=== PATIENT | female | born 1965 | race Caucasian/White ===

== ENCOUNTER 2019-05-20 08:25 | Observation (INO) | payer BC, OTHER ==
[~2019-05-20] VITALS: Ht 167.6 cm; Wt 127.9 kg
[2019-05-20] MEDS ORDERED: ASPIRIN 81 MG CHEW TAB PO ONE (08:45)
[2019-05-20 09:11] LABS: BASOPHILS # (AUTO) 0.1 (0.0-0.1); BASOPHILS % 0.5 % (0.0-1.0); EOSINOPHILS # (AUTO) 0.1 (0.0-0.4); EOSINOPHILS % 1.3 % (0.0-6.0); HEMATOCRIT 39.1 % (34.2-44.1); HEMOGLOBIN 13.2 g/dL (12.0-16.0); LYMPHOCYTES # (AUTO) 3.2 (1.0-3.2); LYMPHOCYTES % 33.7 % (18.0-39.1); MEAN CORPUSCULAR HEMOGLOBIN 30.9 pg (28-32); MEAN CORPUSCULAR HGB CONC 33.8 g/dL (31-35); MEAN CORPUSCULAR VOLUME 91.6 fL (81-99); MONOCYTES # (AUTO) 0.7 (0.2-0.8); MONOCYTES % 7.4 % (4.4-11.3); NEUTROPHILS # (AUTO) 5.3 (2.1-6.9); NEUTROPHILS % 56.6 % (38.7-80.0); PLATELET COUNT 210 x10e3/uL (140-360); RED BLOOD COUNT 4.27 x10e6/uL (3.6-5.1); RED CELL DISTRIBUTION WIDTH 12.3 % (11.7-14.4)
[2019-05-20] MEDS ORDERED: BISACODYL5 MG (09:20)
[2019-05-20] MEDS ORDERED: TYLENOL # 31 EA (09:20)
[2019-05-20] MEDS ORDERED: CITALOPRAM HBR20 MG PO (09:20)
[2019-05-20] MEDS ORDERED: GABAPENTIN100 MG PO (09:20)
[2019-05-20] MEDS ORDERED: MELOXICAM15 MG (09:20)
[2019-05-20] MEDS ORDERED: OLMESARTAN-HCT1 EAC2 PO (09:20)
[2019-05-20] MEDS ORDERED: CYCLOBENZAPRINE10 MG PO (09:20)
--- NOTE | 2019-05-20 09:29 | Diagnostic Imaging Report ---
EXAMINATION: CHEST 2 VIEWS INDICATION: Chest pain COMPARISON: None FINDINGS: LINES/TUBES:None LUNGS:The lungs are well-inflated. No focal consolidation or pulmonary edema. Mild left basilar subsegmental atelectasis. PLEURA:No pleural effusion or pneumothorax. MEDIASTINUM:The cardiomediastinal silhouette appears normal in size and shape. BONES/SOFT TISSUES:No acute osseous injury. ABDOMEN:No free air under the diaphragm. IMPRESSION: No focal pneumonia or pulmonary edema. Mild left basilar subsegmental atelectasis. Signed by: Mary Bernardo MD on 05/20/2019 9:26 AM
[2019-05-20 09:39] LABS: ALBUMIN 4.1 g/dL (3.5-5.0); ALBUMIN/GLOBULIN RATIO 1.1 (0.8-2.0); ANION GAP 12.5 mmol/L (8-16); CALCIUM 9.7 mg/dL (8.4-10.2); CREATININE, SERUM 1.03 mg/dL (0.57-1.11); POTASSIUM 4.5 mmol/L (3.5-5.1)
[2019-05-20 09:46] LABS: CREATINE KINASE MB 1.4 ng/mL (0-5.0)
[2019-05-20] MEDS ORDERED: MORPHINE SULFATE INJ 4 MG/ML INJ 1ML IV PRN (10:30)
[2019-05-20] MEDS ORDERED: ONDANSETRON HCL INJ 2MG/ML 2ML 2 MG/ML VIAL IV PRN (10:30)
--- OUTSIDE RECORDS SUMMARY | 2019-05-20 10:36 | XMS REPORT ---
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 Allergies, Adverse Reactions, Alerts This patient has no known allergies or adverse reactions. Medications This patient has no known medications. Results Test Description Test Time Test Comments Text Results Atomic Results Result Comments CHEST 2 VIEWS 2019-05-20 09:25:00 [facility] [address] [address] Patient Name: AZAR POZO MR #: [id number] : 1965 Age/Sex: 53/F Req #: [id number] Adm Physician: Ordered by: JEIMY GARCIA DO Report #: [id number] Location: ER Room/Bed: Procedure: [id number] DX/CHEST 2 VIEWS Exam Date: Exam Time: REPORT STATUS: Signed EXAMINATION: CHEST 2 VIEWS INDICATION: Chest pain COMPARISON: No ne FINDINGS: LINES/TUBES:None LUNGS:The lungs are well- inflated. No focal consolidation or pulmonary edema. Mild left basilar subsegmental atelectasis. PLEURA:No pleural effusion or pneumothorax. MEDIASTINUM:The cardiomediastinal silhouette appears normal in size and shape. BONES/SOFT TISSUES:No acute osseous injury. ABDOMEN:No free air under the diaphragm. IMPRESSION: No focal pneumonia or pulmonary edema. Mild left basilar subsegmental atelectasis. Signed by: Jordan Bernardo MD on 05/20/2019 9:26 AM Dictated By: JORDAN BERNARDO MD 5 Transcribed By: CODI on 05/20/19925 COPY TO: JEIMY GARCIA DO
--- NOTE | 2019-05-20 13:31 | NUR ---
Received patient from ER via wheelchair. AAOX4 to time, person, place, situation. Respirations even and unlabored. Tele #[phone]. Denies chest pain. Oriented patient to room. Instructed patient to use call light for assistance. Voiced understanding.
[2019-05-20 13:33] VITALS: BP 119/72
[2019-05-20 13:38] VITALS: BP 119/72
[2019-05-20] MEDS ORDERED: TURMERIC538 MG PO (13:46)
[2019-05-20] MEDS ORDERED: [UNRECOGNIZED DRUG - OTHER] PO (13:46)
[2019-05-20 13:50] VITALS: BP 119/72
[2019-05-20 17:53] LABS: CREATINE KINASE MB 1.1 ng/mL (0-5.0)
[2019-05-20] MEDS ORDERED: REGADENOSON 0.4 MG/5 ML SYR IV ONE (18:03)
--- NOTE | 2019-05-20 19:04 | NUR ---
Report given to oncoming nurse of patient's status. Aware of discharge orders. Resting in bed. No s/s of acute distress noted. Side rails upx2, call light within reach.
[2019-05-20 20:21] VITALS: BP 147/92
--- NOTE | 2019-05-20 20:49 | Myoview Stress Test ---
DATE OF STUDY: 05/20/2019 11:57:00 Stress Test - Treadmill ONLY PROCEDURE TITLE: Rest/stress single isotope SPECT imaging with pharmacologic stress and gated SPECT imaging. INDICATION: Chest pain. PROCEDURE IN DETAIL: The patient performed a treadmill exercise using a Micheal protocol exercising for 4 minutes and 39 seconds to stage II and completing estimated workload of 7 metabolic equivalents (METs). The test was terminated due to patient's inability to continue. The patient was therefore switched to pharmacologic stress. Pharmacologic stress testing was performed with regadenoson per protocol. The heart rate was 98 beats per minute at rest and increased to 107 beats per minute during the regadenoson infusion. The resting blood pressure was 109/50 mmHg and increased to 169/50 mmHg, which is a normal response. The resting electrocardiogram demonstrated normal sinus rhythm. There were no ST-segment changes suggestive of myocardial ischemia. Myocardial perfusion imaging was performed at rest following the injection of 11 mCi of tetrofosmin. At peak pharmacologic effect, the patient was injected with 33 mCi of tetrofosmin. Gated post-stress tomographic imaging was performed. FINDINGS: Overall the quality of study is fair. Left ventricular cavity was noted to be normal size on the rest and stress studies. SPECT images demonstrate homogeneous tracer distribution throughout the myocardium. Gated SPECT imaging reveals normal myocardial thickening and wall motion. The left ventricular ejection fraction was calculated to be greater than 70%. IMPRESSION: Myocardial perfusion imaging is normal. Overall left ventricular systolic function was normal without regional wall motion abnormalities. Amanda Kwan MD ABS/MODL /[id number]
--- NOTE | 2019-05-20 22:14 | History and Physical ---
PRIMARY CARE PHYSICIAN: Cristina Berry MD CHIEF COMPLAINT: Chest pain. HISTORY OF PRESENT ILLNESS: This is a 53-year-old woman, who presented with left-sided chest pain for the last two days. The pain is underneath her left breast. It woke her up from a sleep two nights ago. Since then, it has been waxing and waning, but never completely gone away. She does have a history of heartburn, but this feels different. Has no exertional pattern. Currently, the pain is very subtle. Denies nausea or vomiting. No shortness of breath. PAST MEDICAL AND SURGICAL HISTORY: 1. Hypertension. 2. Morbid obesity. 3. Hysterectomy. MEDICATIONS: Please see medication reconciliation form. ALLERGIES: NONE. SOCIAL HISTORY: Does not smoke. FAMILY HISTORY: Heart disease. REVIEW OF SYSTEMS: A 10-point review of system obtained and nothing else is significant other than what is stated in HPI. PHYSICAL EXAMINATION: VITAL SIGNS: Temperature 97.3, pulse 87, respiratory rate 20, blood pressure 119/72. GENERAL: In no acute distress. SKIN: No rash. HEENT: Anicteric. Oropharynx is clear. LUNGS: Clear. HEART: Regular rate and rhythm. Normal S1, S2. GI: Abdomen is soft, nondistended. : Deferred. MUSCULOSKELETAL: Painless range of motion. NEUROLOGIC: Alert and oriented x3. Cranial nerves II through XII grossly intact. PSYCHIATRIC: No hallucinations. LABORATORY DATA: Laboratory barton, chest x-ray is normal. CBC; white count 9, hemoglobin 13, platelet count 210. Creatinine is 1.03. Troponin was negative. Beta-natriuretic peptide is negative. D-dimer is negative. ASSESSMENT AND PLAN: Atypical chest pain. Currently, the patient is getting a stress test per bark tanner's recommendation. Given the fact that her troponin is negative after two days of pain is reassuring, most likely a stress test will be negative, so the patient likely can be discharged home. We will touch base with bark tanner before doing so. I have updated the patient about our tentative plan. She expressed understanding and is in agreement. I have also updated her primary care doctor about this hospitalization. MD JESUS Roman/XIOMARA /[id number] cc: Cristina Berry MD [facility].
--- NOTE | 2019-05-21 00:30 | Consultation ---
DATE OF CONSULTATION: 05/20/2019 Cardiology Consultation REQUESTING PHYSICIAN: Arnold Bolanos MD. REASON FOR CONSULTATION: Chest pain. HISTORY OF PRESENT ILLNESS: This is a 53-year-old woman with history of hypertension and prediabetes mellitus, who presents with complaints of chest pain. The patient reports she began having chest pain on Friday night, which woke her up from sleep. This lasted approximately 5 minutes and radiated to bilateral jaws and left arm. Her pain was associated with nausea and shortness of breath, but no diaphoresis. The pain has been occurring off and on through yesterday and today. Because of these complaints, she called her primary and was instructed to present to the ER for further evaluation. Cardiology was consulted for further care. The patient does endorse edema, that has been ongoing for the last couple of months. REVIEW OF SYSTEMS: Negative except as per HPI. PAST MEDICAL HISTORY: Hypertension and prediabetes mellitus. PAST SURGICAL HISTORY: Hysterectomy and section x2. ALLERGIES: NO KNOWN DRUG ALLERGIES. MEDICATIONS: Please see medication list. SOCIAL HISTORY: Denies tobacco or illicit drugs. She does drink alcohol occasionally. FAMILY HISTORY: Pertinent for father with CABG and AVR. PHYSICAL EXAMINATION: VITAL SIGNS: Temperature 97.1 degrees, pulse 93, respiratory rate 14, blood pressure 160/96, oxygen saturation 98%. GENERAL: Obese woman, in no acute distress. Well developed, well nourished. HEENT: Normocephalic and atraumatic. Pupils equal. No scleral icterus. NECK: Supple. No thyromegaly or cervical lymphadenopathy. No carotid bruits. LUNGS: Clear to auscultation bilaterally. No wheezes or crackles. CARDIOVASCULAR: Normal rate, regular rhythm. No murmur. Normal S1 and S2. ABDOMEN: Soft, nontender, nondistended. EXTREMITIES: No edema. NEUROLOGIC: Nonfocal exam. LABORATORY DATA: WBC 9.42, hemoglobin 13.2, hematocrit 39.1, and platelets 210. Sodium 137, potassium 4.5, chloride 104, CO2 of 25, BUN 17, and creatinine 1.02. Troponin 0.007. EKG normal sinus rhythm. Chest x-ray, no focal pneumonia or pulmonary edema. Mild left basilar subsegmental atelectasis. IMPRESSION: 1. Chest pain. 2. Hypertension. 3. Prediabetes mellitus. RECOMMENDATIONS: No evidence of myocardial infarction on serial cardiac biomarkers. Obtain echocardiogram to evaluate LVEF as well as assess for regional wall motion abnormalities. Given her risk factors, ischemic evaluation is warranted with nuclear stress test. Blood pressure is for the most part acceptable. Continue home cardiac medications. Further recommendations pending test results. Thank you for this consult. We will continue to follow. Amanda Kwan MD ABS/MODL /[id number]
== END 2019-05-20 20:25 | disposition home or self-care (01) ==
LOC: ER 08:25 → ERHOLD 10:20 → MED/SURG2 13:39
PROVIDERS: ADMIT Internal Medicine; ATTEND Internal Medicine
DX: R07.89 Other chest pain (principal); I10 Essential (primary) hypertension; E66.01 Morbid (severe) obesity due to excess calories; Z68.42 Body mass index [BMI] 45.0-49.9, adult; R73.03 Prediabetes
CPT/HCPCS: 36415; 71046; 78452; 80053; 82550; 82553; 83880; 84484; 85025; 85379; 93005; 93017; 99284; A9502; G0378; J2785

== ENCOUNTER 2019-09-04 16:31 | Emergency (ER) | payer BC, OTHER ==
[~2019-09-04] VITALS: Ht 167.6 cm; Wt 127.9 kg
[~2019-09-04 16:31] MED LIST: BISACODYL5 MG; CITALOPRAM HBR20 MG PO; CYCLOBENZAPRINE10 MG PO; GABAPENTIN100 MG PO; MELOXICAM15 MG; OLMESARTAN-HCT1 EAC2 PO; TURMERIC538 MG PO; TYLENOL # 31 EA; [UNRECOGNIZED DRUG - OTHER] PO
[2019-09-04] MEDS ORDERED: SODIUM CHLORIDE 0.9% 1000ML 1,000 ML IV STA (17:10)
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
[2019-09-04] MEDS ORDERED: ONDANSETRON HCL INJ 2MG/ML 2ML 2 MG/ML VIAL IV ONE (17:30)
[2019-09-04] MEDS ORDERED: MORPHINE SULFATE INJ 4 MG/ML INJ 1ML IV ONE (17:30)
[2019-09-04 18:02] LABS: BASOPHILS % 0.4 % (0.0-1.0); EOSINOPHILS # (AUTO) 0.1 (0.0-0.4); EOSINOPHILS % 1.3 % (0.0-6.0); HEMATOCRIT 37.2 % (34.2-44.1); HEMOGLOBIN 12.3 g/dL (12.0-16.0); LYMPHOCYTES # (AUTO) 3.1 (1.0-3.2); LYMPHOCYTES % 29.2 % (18.0-39.1); MEAN CORPUSCULAR HEMOGLOBIN 30.2 pg (28-32); MEAN CORPUSCULAR HGB CONC 33.1 g/dL (31-35); MEAN CORPUSCULAR VOLUME 91.4 fL (81-99); MONOCYTES # (AUTO) 0.8 (0.2-0.8); MONOCYTES % 7.4 % (4.4-11.3); NEUTROPHILS # (AUTO) 6.4 (2.1-6.9); NEUTROPHILS % 61.1 % (38.7-80.0); PLATELET COUNT 194 x10e3/uL (140-360); RED BLOOD COUNT 4.07 x10e6/uL (3.6-5.1); RED CELL DISTRIBUTION WIDTH 12.2 % (11.7-14.4)
[2019-09-04 18:15] LABS: ALANINE AMINOTRANSFERASE 14 IU/L (0-55); ALBUMIN 3.6 g/dL (3.5-5.0); ALBUMIN/GLOBULIN RATIO 1.1 (0.8-2.0); ALKALINE PHOSPHATASE 75 IU/L (40-150); ANION GAP 9.6 mmol/L (8-16); BLOOD UREA NITROGEN 14 mg/dL (7-26); BUN/CREATININE RATIO 15 (6-25); CALCIUM 9.3 mg/dL (8.4-10.2); CARBON DIOXIDE 26 mmol/L (22-29); CHLORIDE 107 mmol/L (98-107); CREATININE, SERUM 0.95 mg/dL (0.57-1.11); EST GLOMERULAR FILTRATION RATE > 60 ML/MIN (60-); GLUCOSE 100 mg/dL (74-118); LIPASE 16 U/L (8-78); POTASSIUM 3.6 mmol/L (3.5-5.1); SODIUM 139 mmol/L (136-145)
[2019-09-04] MEDS ORDERED: IOPAMIDOL 370 MG/ML 200 ML INFUS..BTL INJ ONE (19:40)
[2019-09-04] MEDS ORDERED: SODIUM CHLORIDE 0.9% 50ML 50 ML ONE (19:40)
--- NOTE | 2019-09-04 19:58 | Diagnostic Imaging Report ---
EXAMINATION: CT of the abdomen and pelvis with contrast. TECHNIQUE: Spiral CT images of the abdomen and pelvis were performed from the lung bases to the lesser trochanters after the intravenous administration of 100 cc of Isovue 370 and the oral administration of water. Coronal and sagittal reformatted images were obtained. COMPARISON: None. CLINICAL HISTORY:Epigastric pain, right-sided pain, nausea DISCUSSION: ABDOMEN/PELVIS: LOWER THORAX:Unremarkable. HEPATOBILIARY: Decreased attenuation of the hepatic parenchyma compared to the spleen, consistent with steatosis. No focal hepatic lesions. No intra or extrahepatic biliary ductal dilation. GALLBLADDER: No radio-opaque stones or sludge. No wall thickening. SPLEEN: No splenomegaly. PANCREAS: No focal masses or ductal dilatation. ADRENALS: No adrenal nodules. KIDNEYS/URETERS: No renal or ureteral calculi, hydronephrosis or obstruction. No solid enhancing masses. Deformity/absence of the superior pole of the right kidney (sagittal image 66 and series 2, image 36), may reflect postsurgical changes or sequela of prior trauma or infection. No cystic lesions. No perinephric stranding. PELVIC ORGANS/BLADDER: Bladder is unremarkable. Uterus is absent. No adnexal masses. PERITONEUM/RETROPERITONEUM: No free air or fluid. LYMPH NODES: No intra-abdominal, retroperitoneal, pelvic or inguinal lymphadenopathy. VESSELS: The celiac trunk,superior and inferior mesenteric and bilateral renal arteries are patent The portal, superior mesenteric and splenic veins are patent. GI TRACT: No bowel dilation or evidence of obstruction. No pericolonic inflammatory changes. No wall thickening. A few scattered diverticula in the sigmoid colon, without diverticulitis. Stomach is unremarkable. Oval-shaped 1.2 cm hyperdensities in the cecum likely represent undigested pill material. Appendix is unremarkable. BONES AND SOFT TISSUE: No aggressive lytic or suspicious focal sclerotic lesions. Degenerative discs in the lumbosacral spine, with osteophytosis predominantly at L1-L2, L2-L3. Soft tissues are grossly unremarkable. IMPRESSION: 1. No acute abdominopelvic abnormalities. Specifically, no acute abnormalities in the right abdomen/epigastric region to explain the patient's pain. 2. Findings in the superior pole of the right kidney may represent postsurgical changes or sequela of prior trauma or infection. 3. Hepatic steatosis. Signed by: Dr. Anton Raymond M.D. on 09/04/2019 7:55 PM
[2019-09-04 22:47] VITALS: BP 142/76
== END 2019-09-04 20:29 | disposition home or self-care (01) ==
LOC: ER 16:31
DX: R10.11 Right upper quadrant pain (principal); R11.2 Nausea with vomiting, unspecified; K76.0 Fatty (change of) liver, not elsewhere classified; I10 Essential (primary) hypertension; F32.9 Major depressive disorder, single episode, unspecified; E66.01 Morbid (severe) obesity due to excess calories
CPT/HCPCS: 36415; 74177; 80053; 83690; 85025; 99284; Q9967